=== PATIENT | female | born 1990 | race African-American/Black ===

== ENCOUNTER 2019-09-19 08:49 | Emergency (ER) | payer SELFPAY ==
[2019-09-19 09:10] VITALS: BP 107/70; PULSE 74; TEMP 98.6; BMI 27.1
[2019-09-19] MEDS ORDERED: DIPHTH,PERTUSS(ACELL),TET 0.5 ML DISP.SYRIN IM ONE (09:27)
[2019-09-19] MEDS ORDERED: KETOROLAC TROMETHAMINE 30 MG/1 ML VIAL IM ONE (09:54)
[2019-09-19] MEDS ORDERED: KETOROLAC TROMETHAMINE 30 MG/1 ML VIAL ONE (09:57)
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
== END 2019-09-19 11:20 | disposition home or self-care (01) ==
LOC: JER 08:49
PROC: 0HQFXZZ Repair Right Hand Skin, External Approach (ICD-10-PCS; principal; 2019-09-19)
PROC: 0HQGXZZ Repair Left Hand Skin, External Approach (ICD-10-PCS; 2019-09-19)
PROC: 3E0233Z Introduction of Anti-inflammatory into Muscle, Percutaneous Approach (ICD-10-PCS; 2019-09-19)
DX: S61.012A Laceration without foreign body of left thumb without damage to nail, initial encounter (principal); S61.215A Laceration without foreign body of left ring finger without damage to nail, initial encounter
CPT/HCPCS: 99285-25